=== PATIENT | female | born 1995 | race Hispanic/Latino ===

== ENCOUNTER 2017-02-26 19:51 | Emergency (ER) | payer MEDICAID, OTHER ==
[~2017-02-26] VITALS: Ht 160 cm; Wt 65.0 kg
[2017-02-26 20:01] VITALS: BP 111/74; PULSE 85; RESP 18; O2SAT 98
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
[2017-02-26] MEDS ORDERED: CYCL10TA9 PO (21:34)
[2017-02-26 21:48] VITALS: BP 121/74; PULSE 84; RESP 16; O2SAT 99
== END 2017-02-26 21:50 | disposition home or self-care (01) ==
LOC: SED 19:51
DX: S39.012A Strain of muscle, fascia and tendon of lower back, initial encounter (principal); V44.5XXA Car driver injured in collision with heavy transport vehicle or bus in traffic accident, initial encounter; Y93.89 Activity, other specified; Y92.410 Unspecified street and highway as the place of occurrence of the external cause; Y99.8 Other external cause status